=== PATIENT | female | born 1970 | race Caucasian/White ===

== ENCOUNTER → 2021-02-17 | Outpatient (CLI) | payer BC ==
[2021-02-17 15:42] LABS: FREE T4 0.86 NG/DL (0.76-1.46); RHEUMATOID FACTOR QUANT < 10.0 IU/ML (<15.0); TOTAL PROTEIN 7.2 GM/DL (6.4-8.2)
[2021-02-17 15:44] LABS: FOLATE 14.6 NG/ML; VITAMIN B12 LEVEL 932 PG/ML
[2021-02-17 17:10] LABS: HEMOGLOBIN A1c 5.1 %
[2021-02-18 13:50] LABS: ALPHA-1-GLOBULIN % 3.6 % (2.9-4.9); ALPHA-2-GLOBULINS % 9.7 % (7.1-11.8)
[2021-02-18 13:51] LABS: ALBUMIN 4.46 GM/DL (3.29-5.55); ALPHA-1-GLOBULINS 0.26 GM/DL (0.17-0.41); BETA-1-GLOBULINS 0.35 GM/DL (0.28-0.60); BETA-1-GLOBULINS % 4.9 % (4.7-7.2); BETA-2-GLOBULINS 0.42 GM/DL (0.19-0.55); BETA-2-GLOBULINS % 5.9 % (3.2-6.5); GAMMA GLOBULIN % 13.9 % (11.1-18.8)
== END ==
LOC: M PLALAB 11:45
PROVIDERS: ATTEND Psychiatry & Neurology Neurology
DX: E11.40 Type 2 diabetes mellitus with diabetic neuropathy, unspecified (principal); E07.9 Disorder of thyroid, unspecified

== ENCOUNTER → 2024-04-30 | Outpatient (REF) | payer BC ==
[2024-05-02 16:22] LABS: HPV APTIMA Not Detected (Not Detected)
== END ==
LOC: M SFHCWAGY 13:48
PROVIDERS: ATTEND Nurse Practitioner Family
DX: Z12.4 Encounter for screening for malignant neoplasm of cervix (principal)